=== PATIENT | male | born 1955 | race African-American/Black ===

== ENCOUNTER → 2022-04-16 13:41 | Outpatient (BNVA) | payer MEDICARE, SELFPAY | PROVIDERS: PCP Internal Medicine; Visit Provider Dietitian, Registered | DX: E11.9 Type 2 diabetes mellitus without complications (principal) | CPT/HCPCS: 97802 ==

== ENCOUNTER → 2022-07-25 10:06 | Outpatient (BNVA) | payer MEDICARE, SELFPAY | PROVIDERS: PCP Internal Medicine; Visit Provider Dietitian, Registered | DX: E11.9 Type 2 diabetes mellitus without complications (principal) | CPT/HCPCS: 97803 ==

== ENCOUNTER 2023-09-30 12:28 | Outpatient (REF) | payer MEDICARE, SELFPAY ==
[2023-10-01 17:53] LABS: Lyme Abs Screen <0.90 index
[2023-10-07 19:38] LABS: Treponema pallidum Ab FTA ABS Nonreactive (Nonreactive)
== END 2023-09-30 12:29 | disposition home or self-care (01) ==
LOC: HO.LAB 12:28
PROVIDERS: PCP Internal Medicine; Visit Provider Psychiatry & Neurology Neurology
DX: F45.0 Somatization disorder (principal)
CPT/HCPCS: 36415; 82550; 86617; 86618; 86780